=== PATIENT | female | born 1955 | race Caucasian/White ===

== ENCOUNTER 2018-04-04 12:08 | Emergency (ER) | payer OTHER ==
[2018-04-04] MEDS: KETOROLAC 30 MG INJ IM (13:11)
== END 2018-04-04 15:00 | disposition home or self-care (01) ==
LOC: FTE 12:08
DX: R51 Headache (principal); E11.9 Type 2 diabetes mellitus without complications; I10 Essential (primary) hypertension; Z79.82 Long term (current) use of aspirin; Z79.84 Long term (current) use of oral hypoglycemic drugs
CPT/HCPCS: 70450; 96372; 99285-25

== ENCOUNTER 2018-11-24 18:01 | Emergency (ER) | payer OTHER ==
[2018-11-24] MEDS ORDERED: ONDANSETRON 4 MG INJ IV (20:54)
[2018-11-24] MEDS: SOD CHLORIDE 0.9% 1,000 ML IV (21:11)
[2018-11-24] MEDS: ONDANSETRON 4 MG INJ IV (21:15)
[2018-11-24] MEDS: IBUPROFEN 600 MG TAB PO (21:15)
[2018-11-24 21:36] LABS: ADD MAN DIFF? NO
[2018-11-24 21:38] LABS: BASOPHILS % 0.3 % (0.0-2.0); EOSINOPHILS # 0.1 10^3/ul (0.0-0.5); EOSINOPHILS % 0.9 % (0.0-7.0); HEMATOCRIT 41.7 % (37.0-47.0); HEMOGLOBIN 13.9 g/dl (12.0-16.0); LYMPHOCYTES # 1.3 10^3/ul (0.8-2.9); LYMPHOCYTES % 11.7 % (15.0-51.0); MEAN CORPUSCULAR HEMOGLOBIN 29.8 pg (29.0-33.0); MEAN CORPUSCULAR HGB CONC 33.3 g/dl (32.0-37.0); MEAN CORPUSCULAR VOLUME 89.5 fl (82.0-101.0); MONOCYTE # 0.4 10^3/ul (0.3-0.9); NEUTROPHIL # 8.8 10^3/ul (1.6-7.5); NEUTROPHILS % 82.7 % (39.0-77.0); PLATELET COUNT 149 10^3/UL (140-415); RED BLOOD COUNT 4.66 10^6/ul (4.20-5.40); RED CELL DISTRIBUTION WIDTH 13.2 % (11.5-14.5)
[2018-11-24 21:38] LABS: WHITE BLOOD COUNT 10.7 10^3/ul (4.8-10.8)
[2018-11-24 21:43] LABS: ALANINE AMINOTRANSFERASE 40 IU/L (13-69); ALBUMIN 4.7 g/dl (3.3-4.9); ALBUMIN/GLOBULIN RATIO 1.51; ALKALINE PHOSPHATASE 89 IU/L (42-121); ANION GAP 15 (5-13); ASPARTATE AMINO TRANSFERASE 52 IU/L (15-46); BILIRUBIN,INDIRECT 0.5 mg/dl (0-1.1); BILIRUBIN,TOTAL 0.5 mg/dl (0.2-1.3); BLOOD UREA NITROGEN 18 mg/dl (7-20); CALCIUM 9.8 mg/dl (8.4-10.2); CARBON DIOXIDE 25 mmol/L (21-31); CHLORIDE 99 mmol/L (97-110); CREATININE 0.56 mg/dl (0.44-1.00); Estimated GFR > 60 mL/min (>60); GLUCOSE 210 mg/dl (70-220); LIPASE 70 U/L (23-300); SODIUM 139 mmol/L (135-144); TOTAL PROTEIN 7.8 g/dl (6.1-8.1)
[2018-11-24 21:44] LABS: ADD UMIC YES; UR ASCORBIC ACID NEGATIVE (NEGATIVE); UR BILIRUBIN (Dip) NEGATIVE (NEGATIVE); UR BLOOD (Dip) 1+ mg/dL (NEGATIVE); UR CLARITY SLIGHTLY CLOUDY (CLEAR); UR COLOR YELLOW (YELLOW); UR GLUCOSE (Dip) NEGATIVE (NEGATIVE); UR KETONES (Dip) TRACE mg/dL (NEGATIVE); UR LEUKOCYTE ESTERASE (Dip) 2+ Leu/ul (NEGATIVE); UR MUCUS FEW /HPF (NONE SEEN); UR NITRITE (Dip) NEGATIVE (NEGATIVE); UR RBC 2 /HPF (0-5); UR SPECIFIC GRAVITY (Dip) 1.027 (1.003-1.030); UR SQUAMOUS EPITHELIAL CELL FEW /HPF (FEW); UR TOTAL PROTEIN (Dip) NEGATIVE (NEGATIVE); UR UROBILINOGEN (Dip) NEGATIVE (NEGATIVE); UR WBC 28 /HPF (0-5)
[2018-11-24] MEDS: LIDOCAINE/MYLANTA 40 ML BTL PO (22:56)
[2018-11-24] MEDS: CEFTRIAXONE 1 GM/50 ML (PMX) 50 ML IVPB (22:56)
[2018-11-24] MEDS: BELLADONNA/PHENOBARBITAL TAB PO (22:56)
== END 2018-11-24 23:40 | disposition home or self-care (01) ==
LOC: E/R 18:01
DX: N39.0 Urinary tract infection, site not specified (principal); R19.7 Diarrhea, unspecified; I10 Essential (primary) hypertension; E11.9 Type 2 diabetes mellitus without complications; Z79.4 Long term (current) use of insulin
CPT/HCPCS: 36415; 80053; 81001; 82962; 83690; 85025; 87086; 93005; 96374; 96375; 99284-25

== ENCOUNTER → 2018-12-18 | Emergency (ER) | payer OTHER ==
[2018-12-18] MEDS: SOD CHLORIDE 0.9% 1,000 ML IV (12:08)
[2018-12-18] MEDS: morphine 4 MG/ML VIAL IV (12:08)
[2018-12-18] MEDS: ONDANSETRON 4 MG INJ IV (12:08)
[2018-12-18 12:32] LABS: ADD MAN DIFF? NO
[2018-12-18 12:40] LABS: BASOPHILS % 0.5 % (0.0-2.0); EOSINOPHILS # 0.1 10^3/ul (0.0-0.5); EOSINOPHILS % 1.3 % (0.0-7.0); HEMATOCRIT 38.5 % (37.0-47.0); HEMOGLOBIN 12.9 g/dl (12.0-16.0); LYMPHOCYTES # 2.6 10^3/ul (0.8-2.9); LYMPHOCYTES % 35.4 % (15.0-51.0); MEAN CORPUSCULAR HEMOGLOBIN 29.9 pg (29.0-33.0); MEAN CORPUSCULAR HGB CONC 33.5 g/dl (32.0-37.0); MEAN CORPUSCULAR VOLUME 89.3 fl (82.0-101.0); MEAN PLATELET VOLUME 11.7 fl (7.4-10.4); MONOCYTE # 0.5 10^3/ul (0.3-0.9); MONOCYTES % 6.8 % (0.0-11.0); NEUTROPHIL # 4.1 10^3/ul (1.6-7.5); NEUTROPHILS % 55.5 % (39.0-77.0); PLATELET COUNT 145 10^3/UL (140-415); RED BLOOD COUNT 4.31 10^6/ul (4.20-5.40); RED CELL DISTRIBUTION WIDTH 13.1 % (11.5-14.5)
[2018-12-18 12:40] LABS: WHITE BLOOD COUNT 7.5 10^3/ul (4.8-10.8)
[2018-12-18 12:56] LABS: INR 1.01; PROTIME 13.4 Sec (11.9-14.9)
[2018-12-18 12:57] LABS: PARTIAL THROMBOPLASTIN TIME 26.3 Sec (23.0-35.0)
[2018-12-18 12:58] LABS: ANION GAP 12 (5-13)
[2018-12-18 12:59] LABS: ALANINE AMINOTRANSFERASE 26 IU/L (13-69); ALBUMIN 4.1 g/dl (3.3-4.9); ALBUMIN/GLOBULIN RATIO 1.36; ALKALINE PHOSPHATASE 81 IU/L (42-121); AMYLASE 73 U/L (11-123); ASPARTATE AMINO TRANSFERASE 35 IU/L (15-46); BILIRUBIN,INDIRECT 0.3 mg/dl (0-1.1); BILIRUBIN,TOTAL 0.3 mg/dl (0.2-1.3); BLOOD UREA NITROGEN 12 mg/dl (7-20); CARBON DIOXIDE 24 mmol/L (21-31); CHLORIDE 106 mmol/L (97-110); CREATININE 0.46 mg/dl (0.44-1.00); Estimated GFR > 60 mL/min (>60); GLUCOSE 146 mg/dl (70-220); LIPASE 174 U/L (23-300); POTASSIUM 4.2 mmol/L (3.5-5.1); SODIUM 142 mmol/L (135-144); TOTAL PROTEIN 7.1 g/dl (6.1-8.1)
[2018-12-18 13:07] LABS: TROPONIN-I < 0.012 ng/ml (0.000-0.120)
[2018-12-18] MEDS: IOHEXOL 300MG/ML 150 ML BTL (13:31)
[2018-12-18] MEDS: SOD CHLORIDE 0.9% 100 ML (13:31)
[2018-12-18 13:57] LABS: ADD UMIC YES; UR ASCORBIC ACID NEGATIVE (NEGATIVE); UR BACTERIA FEW /HPF (NONE SEEN); UR BILIRUBIN (Dip) NEGATIVE (NEGATIVE); UR BLOOD (Dip) NEGATIVE (NEGATIVE); UR CLARITY SLIGHTLY CLOUDY (CLEAR); UR COLOR YELLOW (YELLOW); UR GLUCOSE (Dip) NEGATIVE (NEGATIVE); UR KETONES (Dip) TRACE mg/dL (NEGATIVE); UR LEUKOCYTE ESTERASE (Dip) 3+ Leu/ul (NEGATIVE); UR MUCUS FEW /HPF (NONE SEEN); UR NITRITE (Dip) NEGATIVE (NEGATIVE); UR RBC 1 /HPF (0-5); UR SPECIFIC GRAVITY (Dip) 1.024 (1.003-1.030); UR SQUAMOUS EPITHELIAL CELL FEW /HPF (FEW); UR TOTAL PROTEIN (Dip) NEGATIVE (NEGATIVE); UR UROBILINOGEN (Dip) 2+ mg/dL (NEGATIVE); UR WBC 37 /HPF (0-5)
== END | disposition home or self-care (01) ==
LOC: E/R 11:00
DX: N12 Tubulo-interstitial nephritis, not specified as acute or chronic (principal); I10 Essential (primary) hypertension; E11.9 Type 2 diabetes mellitus without complications; Z79.4 Long term (current) use of insulin
CPT/HCPCS: 74177; 80053; 81001; 82150; 83690; 84484; 85025; 85610; 85730; 87086; 93005; 96374; 96375; 99285-25

== ENCOUNTER 2019-02-06 23:35 | Inpatient (IN) | payer OTHER ==
[2019-02-07 00:30] LABS: ADD MAN DIFF? NO
[2019-02-07 00:31] LABS: WHITE BLOOD COUNT 8.5 10^3/ul (4.8-10.8)
[2019-02-07 00:31] LABS: BASOPHILS % 0.5 % (0.0-2.0); EOSINOPHILS # 0.3 10^3/ul (0.0-0.5); EOSINOPHILS % 3.3 % (0.0-7.0); HEMATOCRIT 38.8 % (37.0-47.0); LYMPHOCYTES # 3.7 10^3/ul (0.8-2.9); LYMPHOCYTES % 43.2 % (15.0-51.0); MEAN CORPUSCULAR HEMOGLOBIN 30.1 pg (29.0-33.0); MEAN CORPUSCULAR HGB CONC 33.5 g/dl (32.0-37.0); MEAN CORPUSCULAR VOLUME 89.8 fl (82.0-101.0); MONOCYTE # 0.6 10^3/ul (0.3-0.9); MONOCYTES % 7.4 % (0.0-11.0); NEUTROPHIL # 3.9 10^3/ul (1.6-7.5); NEUTROPHILS % 45.4 % (39.0-77.0); PLATELET COUNT 173 10^3/UL (140-415); RED BLOOD COUNT 4.32 10^6/ul (4.20-5.40); RED CELL DISTRIBUTION WIDTH 13.5 % (11.5-14.5)
[2019-02-07 00:48] LABS: ANION GAP 12 (5-13); BLOOD UREA NITROGEN 13 mg/dl (7-20); CALCIUM 9.9 mg/dl (8.4-10.2); CARBON DIOXIDE 27 mmol/L (21-31); CHLORIDE 103 mmol/L (97-110); CREATININE 0.51 mg/dl (0.44-1.00); Estimated GFR > 60 mL/min (>60); GLUCOSE 110 mg/dl (70-220); POTASSIUM 4.3 mmol/L (3.5-5.1); SODIUM 142 mmol/L (135-144)
[2019-02-07 00:53] LABS: INR 0.96; PROTIME 12.9 Sec (11.9-14.9)
[2019-02-07 00:54] LABS: PARTIAL THROMBOPLASTIN TIME 27.5 Sec (23.0-35.0)
[2019-02-07 00:56] LABS: D-DIMER 317.63 ng/ml (<460)
[2019-02-07 01:00] LABS: B-TYPE NATRIURETIC PEPTIDE 28 PG/ML (0-125); TROPONIN-I < 0.012 ng/ml (0.000-0.120)
[2019-02-07] MEDS: morphine 4 MG/ML VIAL IV (01:01)
[2019-02-07] MEDS: SOD CHLORIDE 0.9% 1,000 ML IV (01:02)
[2019-02-07] MEDS: ONDANSETRON 4 MG INJ IV (01:02)
[2019-02-07] MEDS: ASPIRIN 325 MG TAB PO (01:04)
[2019-02-07] MEDS ORDERED: ACETAMINOPHEN 325 MG TAB PO (02:00)
[2019-02-07] MEDS ORDERED: ONDANSETRON 4 MG INJ IV ×2 (02:00→03:30)
[2019-02-07] MEDS ORDERED: ALBUTEROL/IPRATROPIUM (NEB) 3 ML AMP HHN (03:30)
[2019-02-07] MEDS ORDERED: NACL 0.9% 3 ML SYG IV (03:30)
[2019-02-07] MEDS ORDERED: NITROGLYCERIN (SL) 0.4 MG TAB SL (03:30)
[2019-02-07 06:35] LABS: ADD MAN DIFF? NO
[2019-02-07 06:37] LABS: BASOPHILS % 0.2 % (0.0-2.0); EOSINOPHILS # 0.2 10^3/ul (0.0-0.5); HEMATOCRIT 38.3 % (37.0-47.0); HEMOGLOBIN 12.7 g/dl (12.0-16.0); LYMPHOCYTES # 2.4 10^3/ul (0.8-2.9); LYMPHOCYTES % 26.6 % (15.0-51.0); MEAN CORPUSCULAR HEMOGLOBIN 30.4 pg (29.0-33.0); MEAN CORPUSCULAR HGB CONC 33.2 g/dl (32.0-37.0); MEAN CORPUSCULAR VOLUME 91.6 fl (82.0-101.0); MEAN PLATELET VOLUME 11.9 fl (7.4-10.4); MONOCYTE # 0.6 10^3/ul (0.3-0.9); MONOCYTES % 6.9 % (0.0-11.0); NEUTROPHIL # 5.7 10^3/ul (1.6-7.5); NEUTROPHILS % 63.9 % (39.0-77.0); PLATELET COUNT 144 10^3/UL (140-415); RED BLOOD COUNT 4.18 10^6/ul (4.20-5.40); RED CELL DISTRIBUTION WIDTH 13.8 % (11.5-14.5)
[2019-02-07 06:55] LABS: ALANINE AMINOTRANSFERASE 108 IU/L (13-69); ALBUMIN 3.7 g/dl (3.3-4.9); ALBUMIN/GLOBULIN RATIO 1.37; ALKALINE PHOSPHATASE 106 IU/L (42-121); ANION GAP 11 (5-13); ASPARTATE AMINO TRANSFERASE 212 IU/L (15-46); BILIRUBIN,INDIRECT 0.5 mg/dl (0-1.1); BILIRUBIN,TOTAL 0.5 mg/dl (0.2-1.3); BLOOD UREA NITROGEN 11 mg/dl (7-20); CALCIUM 9.2 mg/dl (8.4-10.2); CARBON DIOXIDE 29 mmol/L (21-31); CHLORIDE 106 mmol/L (97-110); CHOL/HDL RATIO 3.7 RATIO; CHOLESTEROL 109 mg/dl (100-200); CREATININE 0.54 mg/dl (0.44-1.00); Estimated GFR > 60 mL/min (>60); GLUCOSE 107 mg/dl (70-220); HDL CHOLESTEROL 29 mg/dl (35-98); LDL CHOLESTEROL,CALCULATED 52 mg/dl; MAGNESIUM 1.9 mg/dl (1.7-2.5); POTASSIUM 4.6 mmol/L (3.5-5.1); SODIUM 146 mmol/L (135-144); TOTAL PROTEIN 6.4 g/dl (6.1-8.1); TRIGLYCERIDES 138 mg/dl (0-149)
[2019-02-07 06:59] LABS: CREATINE KINASE 45 IU/L (23-200)
[2019-02-07 07:06] LABS: HEMOGLOBIN A1C 6.3 % (0-5.9)
[2019-02-07 07:07] LABS: CK INDEX 0.6; CK-MB 0.29 ng/ml (0.0-2.4); TROPONIN-I < 0.012 ng/ml (0.000-0.120)
[2019-02-07] MEDS: BENAZEPRIL 5 MG TAB PO (09:00)
[2019-02-07] MEDS: SERTRALINE 50 MG TAB PO (09:11)
[2019-02-07] MEDS: ASPIRIN 81 MG TAB PO (09:11)
[2019-02-07] MEDS: ENOXAPARIN 40 MG/0.4 ML SYG SC (09:32)
[2019-02-07] MEDS: INSULIN ASPART [NOVOLOG] 3 ML PEN SC ×7 (09:32→21:00)
[2019-02-07] MEDS: INSULIN GLARGINE [LANTus] (100 UNITS/ML) SYG SC (09:32)
[2019-02-07] MEDS: ACETAMINOPHEN 325 MG TAB PO (11:47)
[2019-02-07 12:44] LABS: CREATINE KINASE 42 IU/L (23-200)
[2019-02-07 12:53] LABS: CK INDEX 0.5; CK-MB < 0.22 ng/ml (0.0-2.4); TROPONIN-I < 0.012 ng/ml (0.000-0.120)
[2019-02-07] MEDS ORDERED: IBUPROFEN 600 MG TAB PO (18:00)
[2019-02-07] MEDS: LATANOPROST 0.005% 2.5 ML OPH BOTH EYES (21:52)
[2019-02-07] MEDS: AMITRIPTYLINE 25 MG TAB PO (21:52)
[2019-02-07] MEDS: ATORVASTATIN 40 MG TAB PO (21:52)
[2019-02-07] MEDS: ACCU-CHEK XX (21:57)
[2019-02-08 06:18] LABS: ADD MAN DIFF? NO
[2019-02-08 06:24] LABS: WHITE BLOOD COUNT 7.3 10^3/ul (4.8-10.8)
[2019-02-08 06:24] LABS: BASOPHILS % 0.4 % (0.0-2.0); EOSINOPHILS # 0.2 10^3/ul (0.0-0.5); EOSINOPHILS % 2.7 % (0.0-7.0); HEMATOCRIT 38.9 % (37.0-47.0); LYMPHOCYTES # 2.6 10^3/ul (0.8-2.9); LYMPHOCYTES % 35.8 % (15.0-51.0); MEAN CORPUSCULAR HEMOGLOBIN 30.2 pg (29.0-33.0); MEAN CORPUSCULAR HGB CONC 33.4 g/dl (32.0-37.0); MEAN CORPUSCULAR VOLUME 90.5 fl (82.0-101.0); MEAN PLATELET VOLUME 12.2 fl (7.4-10.4); MONOCYTE # 0.5 10^3/ul (0.3-0.9); MONOCYTES % 7.4 % (0.0-11.0); NEUTROPHIL # 3.9 10^3/ul (1.6-7.5); NEUTROPHILS % 53.4 % (39.0-77.0); PLATELET COUNT 134 10^3/UL (140-415); RED CELL DISTRIBUTION WIDTH 13.8 % (11.5-14.5)
[2019-02-08 06:49] LABS: ALANINE AMINOTRANSFERASE 81 IU/L (13-69); ALBUMIN 3.8 g/dl (3.3-4.9); ALBUMIN/GLOBULIN RATIO 1.46; ALKALINE PHOSPHATASE 102 IU/L (42-121); ANION GAP 10 (5-13); ASPARTATE AMINO TRANSFERASE 67 IU/L (15-46); BILIRUBIN,INDIRECT 0.6 mg/dl (0-1.1); BILIRUBIN,TOTAL 0.6 mg/dl (0.2-1.3); BLOOD UREA NITROGEN 11 mg/dl (7-20); CALCIUM 8.8 mg/dl (8.4-10.2); CARBON DIOXIDE 30 mmol/L (21-31); CHLORIDE 104 mmol/L (97-110); CREATININE 0.53 mg/dl (0.44-1.00); Estimated GFR > 60 mL/min (>60); GLUCOSE 123 mg/dl (70-220); POTASSIUM 3.9 mmol/L (3.5-5.1); SODIUM 144 mmol/L (135-144); TOTAL PROTEIN 6.4 g/dl (6.1-8.1)
[2019-02-08 06:56] LABS: LIPASE 216 U/L (23-300)
[2019-02-08 07:08] LABS: MAGNESIUM 2.1 mg/dl (1.7-2.5)
[2019-02-08 07:08] LABS: PHOSPHORUS 3.8 mg/dl (2.5-4.9)
[2019-02-08] MEDS: INSULIN ASPART [NOVOLOG] 3 ML PEN SC ×7 (07:53→22:19)
[2019-02-08] MEDS: INSULIN GLARGINE [LANTus] (100 UNITS/ML) SYG SC (07:54)
[2019-02-08] MEDS: BENAZEPRIL 5 MG TAB PO (08:40)
[2019-02-08] MEDS: SERTRALINE 50 MG TAB PO (08:41)
[2019-02-08] MEDS: ASPIRIN 81 MG TAB PO (08:41)
[2019-02-08] MEDS: ENOXAPARIN 40 MG/0.4 ML SYG SC (08:53)
[2019-02-08] MEDS: ACETAMINOPHEN 325 MG TAB PO (11:34)
[2019-02-08] MEDS: SOD CHLORIDE 0.9% 500 ML IV (14:25)
[2019-02-08] MEDS: AMITRIPTYLINE 25 MG TAB PO (21:49)
[2019-02-08] MEDS: LATANOPROST 0.005% 2.5 ML OPH BOTH EYES (21:49)
[2019-02-08] MEDS: ATORVASTATIN 40 MG TAB PO (21:49)
[2019-02-09] MEDS: ACCU-CHEK XX (02:50)
[2019-02-09 06:05] LABS: ADD MAN DIFF? NO
[2019-02-09 06:13] LABS: WHITE BLOOD COUNT 6.4 10^3/ul (4.8-10.8)
[2019-02-09 06:13] LABS: BASOPHILS % 0.5 % (0.0-2.0); EOSINOPHILS # 0.2 10^3/ul (0.0-0.5); EOSINOPHILS % 3.4 % (0.0-7.0); HEMATOCRIT 39.6 % (37.0-47.0); LYMPHOCYTES # 2.8 10^3/ul (0.8-2.9); LYMPHOCYTES % 44.1 % (15.0-51.0); MEAN CORPUSCULAR HEMOGLOBIN 29.8 pg (29.0-33.0); MEAN CORPUSCULAR HGB CONC 32.8 g/dl (32.0-37.0); MEAN CORPUSCULAR VOLUME 90.8 fl (82.0-101.0); MEAN PLATELET VOLUME 11.9 fl (7.4-10.4); MONOCYTE # 0.5 10^3/ul (0.3-0.9); NEUTROPHIL # 2.9 10^3/ul (1.6-7.5); NEUTROPHILS % 44.7 % (39.0-77.0); PLATELET COUNT 124 10^3/UL (140-415); RED BLOOD COUNT 4.36 10^6/ul (4.20-5.40); RED CELL DISTRIBUTION WIDTH 13.7 % (11.5-14.5)
[2019-02-09 06:22] LABS: LIPASE 231 U/L (23-300)
[2019-02-09 06:30] LABS: ALANINE AMINOTRANSFERASE 66 IU/L (13-69); ALBUMIN 3.9 g/dl (3.3-4.9); ALBUMIN/GLOBULIN RATIO 1.39; ALKALINE PHOSPHATASE 108 IU/L (42-121); ANION GAP 11 (5-13); ASPARTATE AMINO TRANSFERASE 52 IU/L (15-46); BILIRUBIN,INDIRECT 0.6 mg/dl (0-1.1); BILIRUBIN,TOTAL 0.6 mg/dl (0.2-1.3); BLOOD UREA NITROGEN 11 mg/dl (7-20); CARBON DIOXIDE 30 mmol/L (21-31); CHLORIDE 103 mmol/L (97-110); CREATININE 0.57 mg/dl (0.44-1.00); Estimated GFR > 60 mL/min (>60); GLUCOSE 136 mg/dl (70-220); POTASSIUM 4.1 mmol/L (3.5-5.1); SODIUM 144 mmol/L (135-144); TOTAL PROTEIN 6.7 g/dl (6.1-8.1)
[2019-02-09] MEDS: INSULIN ASPART [NOVOLOG] 3 ML PEN SC ×7 (07:55→22:28)
[2019-02-09] MEDS: ASPIRIN 81 MG TAB PO (08:08)
[2019-02-09] MEDS: SERTRALINE 50 MG TAB PO (08:09)
[2019-02-09] MEDS: BENAZEPRIL 5 MG TAB PO (08:09)
[2019-02-09] MEDS: ENOXAPARIN 40 MG/0.4 ML SYG SC (08:20)
[2019-02-09] MEDS: INSULIN GLARGINE [LANTus] (100 UNITS/ML) SYG SC (08:20)
[2019-02-09] MEDS: REGADENOSON 0.4 MG/5 ML SYG (12:50)
[2019-02-09] MEDS: ACETAMINOPHEN 325 MG TAB PO (17:15)
[2019-02-09] MEDS: AMITRIPTYLINE 25 MG TAB PO (22:23)
[2019-02-09] MEDS: LATANOPROST 0.005% 2.5 ML OPH BOTH EYES (22:23)
[2019-02-09] MEDS: ATORVASTATIN 40 MG TAB PO (22:23)
[2019-02-10] MEDS: ACCU-CHEK XX (02:35)
[2019-02-10] MEDS: INSULIN ASPART [NOVOLOG] 3 ML PEN SC ×7 (07:41→20:35)
[2019-02-10] MEDS: INSULIN GLARGINE [LANTus] (100 UNITS/ML) SYG SC (07:55)
[2019-02-10] MEDS: BARIUM SULF 2% 450 ML BTL (BERRY SMOOTHIE) PO (07:58)
[2019-02-10] MEDS: BENAZEPRIL 5 MG TAB PO (08:01)
[2019-02-10] MEDS: SERTRALINE 50 MG TAB PO (08:10)
[2019-02-10] MEDS: ASPIRIN 81 MG TAB PO (08:10)
[2019-02-10] MEDS: ENOXAPARIN 40 MG/0.4 ML SYG SC (08:20)
[2019-02-10] MEDS: LATANOPROST 0.005% 2.5 ML OPH BOTH EYES (20:21)
[2019-02-10] MEDS: ATORVASTATIN 40 MG TAB PO (20:22)
[2019-02-10] MEDS: AMITRIPTYLINE 25 MG TAB PO (20:22)
[2019-02-10] MEDS: AL HYDROX/MG HYDROX/SIMETH 30 ML CUP PO (20:59)
[2019-02-11] MEDS: ACCU-CHEK XX (02:45)
[2019-02-11 06:28] LABS: ADD MAN DIFF? NO
[2019-02-11 06:34] LABS: BASOPHILS % 0.6 % (0.0-2.0); EOSINOPHILS # 0.2 10^3/ul (0.0-0.5); EOSINOPHILS % 2.5 % (0.0-7.0); HEMATOCRIT 38.7 % (37.0-47.0); HEMOGLOBIN 13.1 g/dl (12.0-16.0); LYMPHOCYTES # 2.8 10^3/ul (0.8-2.9); LYMPHOCYTES % 41.1 % (15.0-51.0); MEAN CORPUSCULAR HGB CONC 33.9 g/dl (32.0-37.0); MEAN CORPUSCULAR VOLUME 88.8 fl (82.0-101.0); MEAN PLATELET VOLUME 12.1 fl (7.4-10.4); MONOCYTE # 0.5 10^3/ul (0.3-0.9); NEUTROPHIL # 3.2 10^3/ul (1.6-7.5); NEUTROPHILS % 48.4 % (39.0-77.0); PLATELET COUNT 129 10^3/UL (140-415); RED BLOOD COUNT 4.36 10^6/ul (4.20-5.40); RED CELL DISTRIBUTION WIDTH 13.5 % (11.5-14.5)
[2019-02-11 06:34] LABS: WHITE BLOOD COUNT 6.7 10^3/ul (4.8-10.8)
[2019-02-11 07:04] LABS: ANION GAP 8 (5-13); BLOOD UREA NITROGEN 10 mg/dl (7-20); CALCIUM 8.9 mg/dl (8.4-10.2); CARBON DIOXIDE 30 mmol/L (21-31); CHLORIDE 104 mmol/L (97-110); CREATININE 0.55 mg/dl (0.44-1.00); Estimated GFR > 60 mL/min (>60); GLUCOSE 192 mg/dl (70-220); POTASSIUM 4.6 mmol/L (3.5-5.1); SODIUM 142 mmol/L (135-144)
[2019-02-11] MEDS: INSULIN GLARGINE [LANTus] (100 UNITS/ML) SYG SC (07:50)
[2019-02-11] MEDS: INSULIN ASPART [NOVOLOG] 3 ML PEN SC ×4 (07:50→11:38)
[2019-02-11] MEDS: SERTRALINE 50 MG TAB PO (08:20)
[2019-02-11] MEDS: ASPIRIN 81 MG TAB PO (08:20)
[2019-02-11] MEDS: ENOXAPARIN 40 MG/0.4 ML SYG SC (08:24)
[2019-02-11] MEDS: BENAZEPRIL 5 MG TAB PO (08:34)
== END 2019-02-11 14:35 | disposition home or self-care (01) | DRG 313 ==
LOC: E/R 23:35 → TEL 02-07 01:47
DX: R07.9 Chest pain, unspecified (principal); E88.81 Metabolic syndrome and other insulin resistance; F32.9 Major depressive disorder, single episode, unspecified; R00.1 Bradycardia, unspecified; I10 Essential (primary) hypertension; E78.5 Hyperlipidemia, unspecified; E11.9 Type 2 diabetes mellitus without complications; H53.8 Other visual disturbances; R94.31 Abnormal electrocardiogram [ECG] [EKG]; K86.89 Other specified diseases of pancreas; Z79.4 Long term (current) use of insulin; Z88.0 Allergy status to penicillin
CPT/HCPCS: 36415; 71045; 74176; 76705; 78452; 80048; 80053; 80061; 82550; 82553; 82962; 83036; 83690; 83735; 83880; 84100; 84443; 84484; 85025; 85378; 85610; 85730; 93005; 93017; 93306; 96374; 96375; 99285-25; G0378

== ENCOUNTER 2019-04-21 20:44 | Emergency (ER) | payer SELFPAY, OTHER | END 2019-04-21 23:34 | disposition left against medical advice (07) | LOC: E/R 20:44 | DX: Z53.21 Procedure and treatment not carried out due to patient leaving prior to being seen by health care provider (principal) | CPT/HCPCS: 93005 ==